=== PATIENT | female | born 1980 | race Caucasian/White ===

== ENCOUNTER 2022-04-10 07:48 | Emergency (ER) | payer BC ==
[~2022-04-10] VITALS: Ht 172.7 cm; Wt 78.0 kg
[2022-04-10] MEDS ORDERED: KETOROLAC 60MG/2ML VIAL IM ONE (08:45)
[2022-04-10] MEDS ORDERED: HYDROCODONE/ACETAMINOPHEN 5/325MG TABLET PO ONE ×2 (08:45→12:45)
[2022-04-10 10:39] LABS: BASOPHILS % 0.6 % (0.0-2.0); EOSINOPHILS % 0.2 % (0.0-5.0); HEMATOCRIT. 42.4 % (36.0-48.0); HEMOGLOBIN. 14.4 g/dL (12.0-16.0); LYMPHOCYTES % 14.6 % (20.0-50.0); MEAN CORPUSCULAR HEMOGLOBIN 33.4 pg (28.0-32.0); MEAN CORPUSCULAR VOLUME 98.4 fL (81.0-99.0); MEAN PLATELET VOLUME 7.4 fl (7.4-10.4); MONOCYTES % 5.2 % (2.0-8.0); NEUTROPHILS % 79.4 % (40.0-76.0); PLATELET 369 x1000/uL (130-400); RED BLOOD CELL COUNT 4.31 mill/uL (4.2-5.4); RED CELL DISTRIBUTION WIDTH 13.5 % (11.6-14.6)
[2022-04-10 10:50] LABS: CHLORIDE 109 mEq/L (98-107)
[2022-04-10 10:52] LABS: HCG SCREEN NEGATIVE
[2022-04-10] MEDS ORDERED: HYDR-4001 MT (12:46)
[2022-04-10] MEDS ORDERED: IBUP-2028 MT (12:46)
[2022-04-10 13:05] VITALS: BP 108/70
== END 2022-04-10 14:19 | disposition home or self-care (01) ==
LOC: ER 07:48
DX: M54.50 Low back pain, unspecified (principal); M25.552 Pain in left hip; W06.XXXA Fall from bed, initial encounter; Y93.89 Activity, other specified; Y92.89 Other specified places as the place of occurrence of the external cause; Y99.8 Other external cause status
CPT/HCPCS: 36415; 72131; 72192; 80053; 84703; 85025; 96372; 99284; J1885